=== PATIENT | male | born 2000 | race Caucasian/White ===

== ENCOUNTER → 2018-09-25 | Outpatient (CLI) | payer BC, OTHER | LOC: COL.RAD 08:15 | DX: R42 Dizziness and giddiness (principal); Y93.61 Activity, american tackle football | CPT/HCPCS: A9585 ==

== ENCOUNTER → 2019-06-25 | Outpatient (CLI) | payer BC, OTHER | LOC: COL.RAD 09:11 | DX: M79.671 Pain in right foot (principal) | CPT/HCPCS: A9503 ==